=== PATIENT | female | born 1985 | race Two or more races ===

== ENCOUNTER 2023-09-11 00:06 | Inpatient (IN) | payer BC ==
[2023-09-11] MEDS ORDERED: Nalbuphine 10 MG/ML Syringe IVPUSH PRN (00:48)
[2023-09-11] MEDS ORDERED: Sodium Chloride 0.9% 10 ML Syringe FLUSH PRN (00:48)
[2023-09-11] MEDS ORDERED: Calcium Carbonate 500 MG Tab.Chew PO PRN (00:48)
[2023-09-11] MEDS ORDERED: Ondansetron 4 MG/2 ML SDV IVPUSH PRN (00:48)
[2023-09-11 01:05] LABS: BASOPHILS PERCENT AUTO 0.1 % (0.0-1.0); EOSINOPHILS PERCENT AUTO 0.3 % (0.0-6.0); HEMATOCRIT 37.7 % (37.0-47.0); HEMOGLOBIN 13.1 gm/dl (12.0-16.0); IMMATURE GRAN ABSOLUTE AUTO 0.06 K/mm3 (0.00-0.05); IMMATURE GRAN PERCENT AUTO 0.6 % (0.0-0.4); LYMPHOCYTES ABSOLUTE AUTO 1.7 K/mm3 (1.0-4.8); MEAN CORPUSCULAR HEMOGLOBIN 31.7 pg (28.0-32.0); MEAN CORPUSCULAR HGB CONC 34.7 g/dl (32.0-36.0); MEAN CORPUSCULAR VOLUME 91.3 fl (83.0-99.0); MEAN PLATELET VOLUME 10.6 fl (9.4-12.3); MONOCYTES ABSOLUTE AUTO 0.5 K/mm3 (0.0-0.8); MONOCYTES PERCENT AUTO 5.2 % (0.0-8.0); NEUTROPHILS ABSOLUTE AUTO 8.1 K/mm3 (1.8-7.7); NEUTROPHILS PERCENT AUTO 77.8 % (41.0-71.0); PLATELET COUNT,PLT 190 K/mm3 (150-400); RED BLOOD CELL COUNT 4.13 M/mm3 (4.10-5.30); WHITE BLOOD CELL COUNT,WBC 10.36 K/mm3 (3.9-11.3)
[2023-09-11] MEDS ORDERED: Oxytocin/Lactated Ringers 30 UNIT/500 ML BAG IV SCH (06:30)
[2023-09-11] MEDS ORDERED: ePHEDrine 50 MG/ML SDV IVPUSH PRN (07:31)
[2023-09-11] MEDS ORDERED: fentaNYL 100 MCG/2 ML SDV EPIDUR PRN (07:31)
[2023-09-11] MEDS ORDERED: diphenhydrAMINE 50 MG/ML SDV IVPUSH PRN (07:31)
[2023-09-11] MEDS ORDERED: Bupivacaine/fentaNYL/NS 100 ML Bag EPIDUR PRN (07:31)
[2023-09-11] MEDS: Sodium Chloride 0.9% 10 ML Syringe FLUSH SCH (13:19)
[2023-09-11] MEDS: Oxytocin/Lactated Ringers 30 UNIT/500 ML BAG IV SCH (14:14)
[2023-09-11] MEDS: Lactated Ringers 1,000 ML IV SCH (14:15)
[2023-09-11] MEDS ORDERED: Lactated Ringers 1,000 ML IV SCH (17:00)
[2023-09-11] MEDS: Lidocaine 1% 50 ML MDV INJECT PRN (18:12)
[2023-09-11] MEDS: Citric Acid/Sodium Citrate Solution 30 ML Cup PO ONE (19:06)
[2023-09-11] MEDS: Tranexamic Acid 1,000 MG/10 ML Vial ONE (19:06)
[2023-09-11] MEDS: Metoclopramide 10 MG/2 ML SDV IVPUSH ONE (19:06)
[2023-09-11] MEDS ORDERED: Benzocaine/Menthol 20%-0.5% Spray 78 GM Cannister TOP PRN (19:34)
[2023-09-11] MEDS ORDERED: Witch Hazel Medicated Pads 40/Jar TOP PRN (19:34)
[2023-09-11] MEDS: Ibuprofen 600 MG Tab PO SCH (21:39)
[2023-09-12] MEDS: Docusate Sodium 100 MG Cap PO PRN (04:47)
[2023-09-12] MEDS: Acetaminophen 325 MG Tab PO PRN (09:29)
[2023-09-13] MEDS: Ibuprofen 600 MG Tab PO SCH (04:04)
== END 2023-09-13 18:10 | disposition home or self-care (01) | DRG 560 ==
LOC: JD.OBCHECK 00:06 → JD.OB 00:09 → JD.OBCHECK 00:48 → JD.OB 00:54 → OBSVTOIN 18:14 → JD.OB 18:15
PROVIDERS: ADMIT Obstetrics & Gynecology; ATTEND Obstetrics & Gynecology
PROC: 10D07Z6 Extraction of Products of Conception, Vacuum, Via Natural or Artificial Opening (ICD-10-PCS; principal; 2023-09-11)
PROC: 0KQM0ZZ Repair Perineum Muscle, Open Approach (ICD-10-PCS; 2023-09-11)
PROC: 0W8NXZZ Division of Female Perineum, External Approach (ICD-10-PCS; 2023-09-11)
PROC: 3E0334Z Introduction of Serum, Toxoid and Vaccine into Peripheral Vein, Percutaneous Approach (ICD-10-PCS; 2023-09-11)
DX: O42.02 Full-term premature rupture of membranes, onset of labor within 24 hours of rupture (principal); O34.13 Maternal care for benign tumor of corpus uteri, third trimester; Z37.0 Single live birth; O70.1 Second degree perineal laceration during delivery; O69.81X0 Labor and delivery complicated by cord around neck, without compression, not applicable or unspecified; O66.0 Obstructed labor due to shoulder dystocia; O26.893 Other specified pregnancy related conditions, third trimester; Z3A.39 39 weeks gestation of pregnancy; Z67.11 Type A blood, Rh negative
CPT/HCPCS: 36415; 36430; 59025; 59409; 82803; 85025; 85461; 86592; 86850; 86870; 86900; 86901; A9270-GY; J2001; J2790; J7120; J7999